=== PATIENT | female | born 2000 ===

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

== ENCOUNTER → 2019-11-15 | Outpatient (CLI) | payer OTHER ==
--- NOTE | 2019-11-15 09:52 | RADIOLOGY REPORT (SQ) ---
EXAM DESCRIPTION: MRI PELVIS COMBO IMAGES COMPLETED DATE/TIME: 11/15/2019 9:07 am REASON FOR STUDY: DYSURIA/PELVIC PAIN R30.0 DYSURIA COMPARISON: None. TECHNIQUE: Multiplanar multisequence imaging performed without and with contrast including axial, sa gittal and coronal T2, axial T, axial gradient fat sat T1, axial, sagittal and coronal fat sat T2 pos t contrast. CONTRAST TYPE AND DOSE: 10 mL Prohance. RENAL FUNCTION: Not indicated. Current literature does not support significant risk of NSF with typ e 2 contrast agent. LIMITATIONS: None. FINDINGS: BLADDER AND URETHRA: No focal bladder wall thickening or nodularity. Smooth mucosa. The urethra has smooth contour with no focal asymmetry. No abnormal enhancement. No focal lesions. PELVIC SOFT TISSUES: Normal. No masses. UTERUS: Normal size. No masses. Junctional zone normal. RIGHT OVARY: Normal size. No masses. LEFT OVARY: Normal size. No masses. FREE FLUID: Trace physiologic free fluid is seen within the pelvic cul-de-sac. PELVIC SKELETAL STRUCTURES: No abnormal marrow signal. EXTRA PELVIS SOFT TISSUES: No masses. OTHER: No other significant finding. IMPRESSION: NORMAL FEMALE PELVIC MRI WITH AND WITHOUT CONTRAST. TECHNICAL DOCUMENTATION: JOB ID: [id number] 2010 [employer]- All Rights Reserved Reading location - IP/workstation name: [email or web address]
== END ==
LOC: RAD 08:21
PROVIDERS: ATTEND Student in an Organized Health Care Education/Training Program
DX: R10.2 Pelvic and perineal pain (principal); R30.0 Dysuria
CPT/HCPCS: 72197; A9576